=== PATIENT | female | born 1995 ===

== ENCOUNTER 2022-05-10 16:15 | Outpatient (REF) | payer MEDICAID, OTHER, SELFPAY ==
--- NOTE | ~2022-05-10 | US_ITS ---
EXAMINATION: US PELVIS CLINICAL INFORMATION: Chronic pelvic pain. COMPARISON: None. TECHNIQUE: Ultrasound of the pelvis is performed using both transabdominal and transvaginal transducers along with Doppler. Transvaginal imaging is performed due to inadequate visualization transabdominally. FINDINGS: Uterus: The uterus is anteverted, anteflexed and measures 7.8 cm in length, 4.8 mL in AP and 5.6 cm in transverse dimension. The double wall endometrial thickness is 0.8 cm. The uterus is smooth in contour and has normal myometrial echogenicity. No visible fibroid. Adnexa: Both ovaries are visualized. There is normal color flow to the adnexa. There is no ovarian torsion. There is no pelvic ascites or fluid collection. Right ovary measures 2.1 x 2.1 x 2.4 cm and volume 5.5 mL. Left ovary is not visualized. There is no free fluid in cul-de-sac. US/US pelvic and transvaginal IMPRESSION: 1. Unremarkable uterus and right ovary. 2. The left ovary is not seen.
== END 2022-05-10 16:16 | disposition home or self-care (01) ==
LOC: HO.US 16:15
PROVIDERS: Visit Provider Family Medicine
DX: R10.2 Pelvic and perineal pain (principal); G89.29 Other chronic pain
CPT/HCPCS: 76830; 76856

== ENCOUNTER 2023-06-14 14:34 | Outpatient (REF) | payer MEDICAID, OTHER, SELFPAY ==
[2023-06-14 17:41] LABS: Hematocrit 37.3 % (37.0-47.0); Hemoglobin 12.3 g/dl (12.0-16.0); Mean Corpuscular Hemoglobin 28.3 pg (27.0-33.0); Mean Corpuscular Volume 85.7 fL (80.0-98.0); Mean Platelet Volume 9.8 fL (9.4-12.3); Platelet Count 272 X10*3/uL (160-400); Red Blood Count 4.35 X10*6/uL (4.20-5.50); Red Cell Distribution Width 13.3 % (11.0-16.0); White Blood Count 6.8 X10*3/uL (4.8-10.8)
== END 2023-06-14 14:35 | disposition home or self-care (01) ==
LOC: HO.CHCLDS 14:34
PROVIDERS: Visit Provider Advanced Practice Midwife
DX: D50.8 Other iron deficiency anemias (principal)
CPT/HCPCS: 36415; 85027

== ENCOUNTER 2024-04-03 09:05 | Outpatient (REF) | payer MEDICAID, SELFPAY ==
[2024-04-03 14:42] LABS: MANUAL DIFF FLAG NO
[2024-04-03 14:48] LABS: Basophils Percent Auto 0.6 % (0-2); Eosinophils Percent Auto 0.6 % (0-4); Hematocrit 39.1 % (37.0-47.0); Hemoglobin 12.7 g/dl (12.0-16.0); Imm Gran Abs Auto 0.01 X10*3/uL (0.00-0.03); Imm Gran Pct Auto 0.1 % (0.0-0.4); Lymphocytes Absolute Auto 1.8 X10*3/uL (1.2-4.9); Lymphocytes Percent Auto 26.3 % (20-40); Mean Corpuscular HGB Conc 32.5 g/dl (31.0-35.0); Mean Corpuscular Hemoglobin 27.5 pg (27.0-33.0); Mean Corpuscular Volume 84.6 fL (80.0-98.0); Mean Platelet Volume 9.9 fL (9.4-12.3); Monocytes Absolute Auto 0.5 X10*3/uL (0.1-1.2); Monocytes Percent Auto 7.7 % (2-11); Neutrophils Absolute Auto 4.4 x10*3/uL (2.0-8.3); Neutrophils Percent Auto 64.7 % (45-73); Platelet Count 262 X10*3/uL (160-400); Red Blood Count 4.62 X10*6/uL (4.20-5.50); Red Cell Distribution Width 13.3 % (11.0-16.0); White Blood Count 6.8 X10*3/uL (4.8-10.8)
[2024-04-03 14:57] LABS: Alanine Aminotransferase 25 U/L (0-31); Alkaline Phosphatase 52 U/L (39-117); Anion Gap 10 (12-20); Aspartate Amino Transferase 37 U/L (5-31); Bilirubin Total 1.1 mg/dL (0.0-1.0); Blood Urea Nitrogen 14 mg/dL (9-16); Calcium 9.2 mg/dL (8.4-10.2); Carbon Dioxide 26 mmol/L (22-29); Chloride 106 mmol/L (96-108); Cholesterol 164 mg/dL (<200); Estimated Glomerular Filt Rate > 60; Glucose Random 83 mg/dL (60-115); HDL Cholesterol 56 mg/dL (>40); LDL Cholesterol Calculated 95 mg/dL (<100); Potassium 3.7 mmol/L (3.3-5.1); Sodium 138 mmol/L (135-145); Total Protein 7.2 g/dL (6.5-8.0); Triglycerides 65 mg/dL (<150)
[2024-04-05 15:01] LABS: HBS Num1 20.14 mIU/mL (0-7.99); HBc Num1 0.24 S/CO (0.00-0.79); HBsAGNum1 0.41 S/CO (0.00-0.99); HIV AB/AG Nonreactive (Nonreactive); HIV Num 1 0.06 S/CO (0.00-0.99); Hepatitis B Core Antibody Nonreactive (Nonreactive); Hepatitis B Surface Antigen Negative (Negative); ~HepC Num1 0.13 S/CO (0.00-0.79); ~Hepatitis B Surface Antibody REACTIVE (Nonreactive); ~Hepatitis C Antibody Nonreactive (Nonreactive)
== END 2024-04-03 09:06 | disposition home or self-care (01) ==
LOC: HO.CHCLDS 09:05
PROVIDERS: Visit Provider Family Medicine
DX: Z13.9 Encounter for screening, unspecified (principal)
CPT/HCPCS: 36415; 80053; 80061; 85025; 86704; 86706; 86803; 87340; 87389